=== PATIENT | female | born 1960 | race Two or more races ===

== ENCOUNTER 2017-07-26 02:10 | Emergency (ER) | payer BC, MEDICAID ==
[~2017-07-26] VITALS: Ht 142.2 cm; Wt 64.0 kg
[2017-07-26] MEDS ORDERED: KETOROLAC 30MG/ML VIAL IM ONE (03:00)
[2017-07-26] MEDS ORDERED: TETRACAINE 0.5% OPHTH DROPS 4ML OP ONE (03:00)
[2017-07-26] MEDS ORDERED: BALANCED SALT IRRIG SOLN 15ML IO ONE (03:00)
[2017-07-26] MEDS ORDERED: FLUORESCEIN SODIUM 1MG/STRIP OP ONE (03:00)
[2017-07-26] MEDS ORDERED: ONDANSETRON 4MG ODT PO ONE (03:00)
[2017-07-26] MEDS ORDERED: HYDROCODONE/ACETAMINOPHEN 5/325MG TABLET PO ONE (04:00)
[2017-07-26 04:51] VITALS: BP 171/75
== END 2017-07-26 04:55 | disposition home or self-care (01) ==
LOC: ER 02:10
DX: H10.023 Other mucopurulent conjunctivitis, bilateral (principal); H40.9 Unspecified glaucoma; Z98.890 Other specified postprocedural states
CPT/HCPCS: 96372; 99284; J1885; Q0162